=== PATIENT | male | born 2000 | race Caucasian/White ===

== ENCOUNTER 2024-09-09 22:20 | Emergency (ER) | payer BC, SELFPAY ==
[2024-09-09 22:21] VITALS: BP 171/95; PULSE 108; RESP 16; TEMP 36.8; O2SAT 99; BMI 32.3
--- NOTE | 2024-09-09 23:09 | EKG12_ITS ---
Test Reason : CP Blood Pressure : */* mmHG Vent. Rate : 83 BPM Atrial Rate : 83 BPM P-R Int : 144 ms QRS Dur : 70 ms QT Int : 352 ms P-R-T Axes : 45 17 36 degrees QTcB Int : 413 ms Normal sinus rhythm with sinus arrhythmia Normal ECG Confirmed by TRENA FATIMA, GRACIE ([id number]), editor in chief newspaper NETTE ALEXANDRE ([id number]) on 09/12/2024 11:03:57 AM Referred By: JORGE LUIS Confirmed By: GRACIE ALBRECHT MD
[2024-09-09 23:20] VITALS: BP 142/98; PULSE 85; RESP 20; O2SAT 99
--- NOTE | 2024-09-09 23:38 | RAD_ITS ---
EXAM: XR CHEST, 2 VIEWS CLINICAL INDICATION: chest pain TECHNIQUE: Frontal and lateral views of the chest. COMPARISON: No relevant prior studies available. FINDINGS: LUNGS AND PLEURAL SPACES: Unremarkable. No consolidation or edema. No pneumothorax. No effusion. HEART: Unremarkable. Cardiac silhouette not enlarged. MEDIASTINUM: Central airways and mediastinal contour are unremarkable. BONES/JOINTS: Unremarkable. No acute fracture. SOFT TISSUES: Unremarkable. RAD/Chest PA and Lateral IMPRESSION: No radiographic evidence of acute cardiopulmonary disease. Electronically Signed: Dayana Bradley MD at 0:42 EST ,
--- NOTE | 2024-09-09 23:56 | ED.RN ---
no old ekg
[2024-09-10] VITALS: BP 134/85; PULSE 76; RESP 18; O2SAT 97
[2024-09-10] LABS: Absolute Lymphocyte Count 1.85 X10^3/uL (0.83-4.51); Anion Gap 7 (5-15); BUN 10 mg/dL (7-18); BUN/Creat Ratio 11.5 RATIO (10-20); Basophil# 0.06 X10^3/uL; Basophil% 0.8 % (0-1); Calcium,Total 9.3 mg/dL (8.5-10.1); Chloride 108 mmol/L (98-107); Creatinine, Serum 0.87 mg/dL (0.70-1.30); EST Glomerular Filtration Rate 114 mL/min (>60); Eosinophil# 0.09 X10^3/uL; Eosinophils% 1.2 % (0-5); Est Glom Filt Rate - Afr Amer 138 mL/min (>60); Estimated Creatinine Clearance 156.71 ml/min; Glucose 101 mg/dL (74-106); Hematocrit 45.4 % (40-54); Lymphocyte # 1.85 X10^3/ul (0.83-4.51); Magnesium 2.1 mg/dL (1.6-2.6); Mean Corp Hgb Conc 35.2 g/dL (32-36); Mean Corpuscular Hgb 30.8 pg (27.0-32.0); Mean Corpuscular Volume 87.3 fL (80-94); Mean Platelet Vol. 9.8 fl (6.2-12.0); Monocyte# 0.61 X10^3/uL; Monocyte% 7.9 % (0-10); NRBC Flagged by Analyzer 0 % (0-5); Neutrophil # 4.99 X10^3/uL (2.7-7.7); Neutrophil % 64.7 % (47-70); Platelet Count 340 K/mm3 (150-450); RBC Distribution Width CV 11.9 % (11.6-14.6); RBC Distribution Width SD 38.3 fl (35.1-43.9); Sodium Level 140 mmol/L (136-145); Troponin-I HS 4 pg/mL (3.0-78.0); White Blood Count 7.7 K/mm3 (4.4-11.0)
[2024-09-10 00:22] LABS: D-Dimer Quantitative (DVT/PE) < 0.27 FEU/ug/m (0.27-0.49)
--- NOTE | 2024-09-10 00:59 | EDS_ITS ---
HPI History of Present Illness Chief Complaint: Chest Pain Informant: patient Narrative Narrative: Patient is a 24-year-old male who states that he has anxiety. He states he is dealt with anxiety for years. He reports over the last few months he will have intermittent bouts of chest discomfort. He states that he went to an outside hospital for this and had an EKG which was normal. However he feels that his symptoms are worsening and today he states he had the most severe episode of his recurrent chest discomfort. He states there is no history of cardiac disease at a young age in his family he denies any previous history of DVT or PE he denies any illicit drug use. He states he is unsure if this is worsening anxiety or truly a cardiac issue and secondary to this comes in for evaluation. PFSH PFSH Medical History no medical history Home Medications ?Medication ?Instructions ?Recorded ?Last Taken ?Type NK 09/09/24 Unknown History Allergy/AdvReac Type Severity Reaction Status Date / Time No Known Allergies Allergy Verified 09/09/24 22:22 Social History Smoking Status: Current every day smoker tobacco type: e-cigarettes ROS ROS ED Constitutional Constitutional ED: Denies chills or fever(s) Eyes Eyes: Denies change in vision ENT ENT ED: Denies sore throat Cardiovascular Cardiovascular: Reports chest pain, palpitations and racing heartbeat Respiratory/Chest Respiratory/Chest: Reports dyspnea; Denies cough Gastrointestinal Gastrointestinal: Denies abdominal pain, diarrhea, nausea or vomiting Genitourinary Genitourinary ED: Denies dysuria Musculoskeletal Musculoskeletal: Denies myalgias Integumentary Denies rash Neurologic Neurologic: Denies headache(s) Psychiatric Psychiatric: Reports anxiety; Denies suicidal ideation or suicidal thoughts Hematologic/Lymphatic Hematologic/Lymphatic: Denies easy bleeding or easy bruising EXAM Physical Exam Const Vital Signs: 09/09/24 22:21 09/09/24 22:32 09/09/24 23:20 Temperature 98.2 F Temperature Source Oral Pulse Rate 108 H 85 Respiratory Rate 16 20 H Respiratory Effort Normal Non-Labored Blood Pressure 171/95 H 142/98 H Blood Pressure Mean 120 112 Pulse Ox 99 99 Oxygen Delivery Method Room Air Room Air 09/10/24 00:00 09/10/24 01:09 Temperature 98.2 F Temperature Source Pulse Rate 76 78 Respiratory Rate 18 16 Respiratory Effort Blood Pressure 134/85 H 144/77 H Blood Pressure Mean 101 99 Pulse Ox 97 100 Oxygen Delivery Method Room Air Positive well nourished and well developed General Appearance ED: well developed; Negative for pallor HEENT HEENT Narrative: Normocephalic atraumatic Eyes PERRL and EOMs intact bilaterally General Eye ED: Negative for scleral icterus Neck supple and no JVD Neck Narrative: No nuchal rigidity or meningeal signs Chest Wall palpation of chest normal Chest Narrative: No bony deformity crepitance or subcutaneous emphysema palpated Resp normal respiratory effort and clear to auscultation bilaterally Cardio regular rhythm Rate: tachycardic and other Other Details: Slightly tachycardic rate with regular rhythm No murmurs rubs or gallop Radial and carotid pulses are equal and symmetric No carotid bruit noted GI normal to inspection, nondistended, normoactive bowel sounds, non-tender, non- distended and no masses Auscultation: normoactive bowel sounds Palpation: soft Extremity normal to inspection Extremity Narrative: No asymmetric edema no pitting edema negative Homans' sign bilaterally Neuro oriented x3, CN's II-XII intact bilaterally and no sensory deficits noted Sensorium / Orientation: alert Motor Exam: strength 5/5 throughout Psych Mood & Affect: anxious Skin no rashes or lesions noted and no wounds General Skin Exam: Negative for jaundice or pallor MDM MDM MDM Narrative Medical decision making narrative: Patient presented to the ER hypertensive and slightly tachycardic but otherwise with stable vitals. He is low risk for cardiovascular disease and reports symptoms have been ongoing for a few months. As there is potential for cardiac dysrhythmia versus acute coronary syndrome versus pulmonary embolus versus thyroid disorder versus acute loss anemia versus acute kidney injury versus electrolyte abnormality I did elect to perform basic laboratory studies. Patient's troponin is normal at 4 coupled with a normal sinus rhythm EKG going against acute coronary syndrome and cardiac dysrhythmia. D-dimer is normal going against PE or dissection. Chest x-ray reveals no acute lung pathology such as pneumonia pneumothorax or pleural effusion. Blood work reveals no signs of anemia and no signs of ALEX and a normal TSH going against thyroid disorder. Therefore at this time his overall workup is negative patient's symptoms are most like related to anxiety as he is low risk for cardiovascular disease and therefore I do not feel there is need for further testing in the ER and he is otherwise safe for discharge History & Record Review Discussion w/independent historian: Patient Lab Data Attestation: I reviewed the patient's lab results. Labs: Laboratory Results - last 24 hr 09/09/24 23:30 WBC 7.7 RBC 5.20 Hgb 16.0 Hct 45.4 MCV 87.3 MCH 30.8 MCHC 35.2 RDW Std Deviation 38.3 RDW Coeff of Michael 11.9 Plt Count 340 MPV 9.8 Immature Gran % (Auto) 1.400 H Neut % (Auto) 64.7 Lymph % (Auto) 24.0 [place] % (Auto) 7.9 Eos % (Auto) 1.2 Baso % (Auto) 0.8 Absolute Neuts (auto) 5.0 Absolute Lymphs (auto) 1.85 Nucleated RBC % 0 D-Dimer Quant (PE/DVT) < 0.27 L Sodium 140 Potassium 4.0 Chloride 108 H Carbon Dioxide 24.0 Anion Gap 7 BUN 10 Creatinine 0.87 Estim Creat Clear Calc 156.71 Est GFR (MDRD) Af Amer 138 Est GFR (MDRD) Non-Af 114 BUN/Creatinine Ratio 11.5 Glucose 101 Calcium 9.3 Magnesium 2.1 Troponin I High Sens 4 TSH 1.520 Radiography Diagnostic Testing: Clinical Impression(s) from Imaging Studies Chest X-Ray 09/09/24 23:38 IMPRESSION: No radiographic evidence of acute cardiopulmonary disease. Electronically Signed: Dayana Bradley MD at 0:42 EST , Chest x-ray as interpreted by the emergency medicine physician reveals no acute infiltrate pneumothorax pleural effusion or widening of the mediastinum Discharge Plan Triage Chief Complaint: Chest Pain ED Provider: Salvatore Lomeli Dx/Rx/DC Orders Clinical Impression: Acute nonspecific chest pain with low risk of coronary artery disease, Hypertension, Anxiety Instructions: ED Chest Pain, Uncertain Cause Prescriptions: No Action NK Primary Care Provider: Care Physician,No Primary Referrals: Kali Raymond MD [Med Staff - Active Staff] - Care Physician,No Primary [Primary Care Provider] - Activity Restrictions/Additional Instructions: Your workup revealed no signs of abnormal heart rhythm or active heart damage. Follow-up with your family doctor for repeat evaluation and return to the ER should you have any further concerns Print Language: Faroese Disposition Disposition: Home, Self Care Discharge Date/Time: 09/10/24 01:12
[2024-09-10 01:09] VITALS: BP 144/77; PULSE 78; RESP 16; TEMP 36.8; O2SAT 100
== END 2024-09-10 01:12 | disposition home or self-care (01) ==
PROVIDERS: Emergency Provider Emergency Medicine; Visit Provider Emergency Medicine
DX: R07.9 Chest pain, unspecified (principal); I10 Essential (primary) hypertension; F41.9 Anxiety disorder, unspecified; F17.290 Nicotine dependence, other tobacco product, uncomplicated